=== PATIENT | female | born 1965 | race Caucasian/White ===

== ENCOUNTER 2018-11-02 21:22 | Emergency (ER) | payer MEDICAID ==
[~2018-11-02] VITALS: Ht 165.1 cm; Wt 63.3 kg
[2018-11-03 01:29] VITALS: BP 146/79
[2018-11-03] MEDS ORDERED: DexAMETHasone SOD PHOS 10MG/1ML VIAL INJ IM ONE (01:30)
== END 2018-11-03 01:56 | disposition home or self-care (01) ==
LOC: ER 21:25
DX: S86.912A Strain of unspecified muscle(s) and tendon(s) at lower leg level, left leg, initial encounter (principal); X50.1XXA Overexertion from prolonged static or awkward postures, initial encounter; Y93.89 Activity, other specified; Y92.89 Other specified places as the place of occurrence of the external cause; Y99.8 Other external cause status
CPT/HCPCS: 29505; 73562; 96372; 99283; J1100

== ENCOUNTER 2020-02-11 17:20 | Inpatient (IN) | payer MEDICAID, OTHER ==
[~2020-02-11] VITALS: Ht 165.1 cm; Wt 64.7 kg
[2020-02-11 20:37] LABS: Albumin 3.4 g/dL (3.4-5.0); Calcium 8.8 mg/dL (8.5-10.1); Potassium 3.8 mmol/L (3.5-5.1)
[2020-02-11 20:38] LABS: Basophils # (auto) 0 10 ^3/uL (0-0.2); Basophils % (auto) 0.4 % (0.0-2.0); Eosinophils # (auto) 0.2 10 ^3/uL (0-0.8); Eosinophils % (auto) 2.3 % (0.0-7.0); Hematocrit 43.2 % (36.0-46.0); Hemoglobin 14.4 g/dL (12.2-16.2); Lymphocytes # (auto) 1.8 10 ^3/uL (0.4-5.4); Lymphocytes % (auto) 18.6 % (10.0-50.0); Mean Corpuscular Hemoglobin 30.3 pg (28.0-32.0); Mean Corpuscular Hgb Conc. 33.4 g/dL (32.0-36.0); Mean Corpuscular Volume 90.7 fL (80.0-100.0); Monocytes # (auto) 0.5 10 ^3/uL (0-1.3); Monocytes % (auto) 5.1 % (0.0-12.0); Neutrophils # (auto) 7.2 10 ^3/uL (1.6-8.6); Neutrophils % (auto) 73.6 % (37.0-80.0); Platelet Count (auto) 262 10^3/uL (140-450); Red Blood Cells 4.76 10^6/uL (4.0-5.20); White Blood Cell 9.8 10^3/uL (4.4-10.8)
[2020-02-11 20:40] LABS: Bilirubin, Total 0.3 mg/dL (0.2-1.0); Total Protein 7.1 g/dL (6.4-8.2)
[2020-02-11 21:15] LABS: INR 1.1 (0.9-1.15); Partial Thromboplastin Time 25.8 sec (23.0-31.2)
[2020-02-11] MEDS ORDERED: IOHEXOL 350 MG/ML 100ML IJ ONE (21:56)
[2020-02-12] MEDS ORDERED: ONDANSETRON HCL 4 MG/2 ML VIAL IV PRN (00:30)
[2020-02-12] MEDS ORDERED: ACETAMINOPHEN 325 MG TAB PO PRN (00:30)
[2020-02-12] MEDS ORDERED: TEMAZEPAM 15 MG CAP PO PRN (00:30)
[2020-02-12 05:28] LABS: Urine Bacteria FEW /hpf (None Seen); Urine Blood Negative /uL (Negative); Urine Mucus FEW (None Seen); Urine Specific Gravity > 1.050 (1.001-1.035); Urine WBC 5 /hpf (0 - 5)
[2020-02-12 05:34] LABS: Alcohol, Urine < 3.0 mg/dL (0-10); Amphetamine Screen, Urine POSITIVE (NEGATIVE); Barbiturate Scree,Urine NEGATIVE (NEGATIVE); Benzodiazephine Screen, Urine NEGATIVE (NEGATIVE); Cannabinoid Screen, Urine NEGATIVE (NEGATIVE); Cocaine Screen, Urine NEGATIVE (NEGATIVE); Opiate Scree,Urine NEGATIVE (NEGATIVE); Phencyclidine Screen, Urine NEGATIVE (NEGATIVE)
[2020-02-12] MEDS ORDERED: ENOXAPARIN SOD 40 MG/0.4 ML SYRINGE SC SCH (10:00)
[2020-02-12] MEDS ORDERED: ASPirin 81 mg TAB PO SCH (10:00)
[2020-02-12] MEDS: FAMOTIDINE 20 MG TAB PO SCH ×2 (10:16→21:06)
[2020-02-12] MEDS ORDERED: ENOXAPARIN SOD 40 MG/0.4 ML SYRINGE SC ONE (12:30)
[2020-02-12 16:30] VITALS: BP 149/87
--- NOTE | 2020-02-12 16:30 | NUR ---
MS admit from ER BIBIANA CHENG admitted to tele/MS after SBAR received. Patient oriented to RAJANI TUCKER, RN primary RN, unit, room, bed, and unit policies regarding patient care and visiting hours. Patient weighed by bed scale and encouraged to call if they need something. All questions and concerns addressed, patient verbalized understanding. Note: VS: 97.8, 91, 17, 96%, 149/87. No complaints of pain or discomfort, will continue to monitor.
[2020-02-12 17:00] VITALS: BP 149/87
--- NOTE | 2020-02-12 18:23 | NUR ---
MED REC Patient does not take any medications at home
[2020-02-12] MEDS: ATORVASTATIN 20 MG TAB PO SCH (21:06)
--- NOTE | 2020-02-12 21:45 | NUR ---
DR ARAGON IN TO SEE PATIENT. ORDERS MADE AND NOTED.
[2020-02-12 22:00] VITALS: BP 89/62
[2020-02-13 05:00] VITALS: BP 102/63
[2020-02-13 06:16] LABS: Basophils # (auto) 0 10 ^3/uL (0-0.2); Basophils % (auto) 0.5 % (0.0-2.0); Eosinophils # (auto) 0.3 10 ^3/uL (0-0.8); Eosinophils % (auto) 4.9 % (0.0-7.0); Hematocrit 43.2 % (36.0-46.0); Hemoglobin 14.6 g/dL (12.2-16.2); Lymphocytes # (auto) 2.5 10 ^3/uL (0.4-5.4); Lymphocytes % (auto) 34.7 % (10.0-50.0); Mean Corpuscular Hemoglobin 30.4 pg (28.0-32.0); Mean Corpuscular Hgb Conc. 33.7 g/dL (32.0-36.0); Mean Corpuscular Volume 90.2 fL (80.0-100.0); Monocytes # (auto) 0.6 10 ^3/uL (0-1.3); Monocytes % (auto) 8.6 % (0.0-12.0); Neutrophils # (auto) 3.7 10 ^3/uL (1.6-8.6); Neutrophils % (auto) 51.3 % (37.0-80.0); Nucleated Red Blood Cells % 0.2 %; Platelet Count (auto) 224 10^3/uL (140-450); Red Blood Cells 4.79 10^6/uL (4.0-5.20); Red Cell Distribution Width 12.1 % (11.8-14.3); White Blood Cell 7.2 10^3/uL (4.4-10.8)
[2020-02-13 06:39] LABS: Potassium 3.6 mmol/L (3.5-5.1)
[2020-02-13 06:47] LABS: BUN/Creatinine Ratio 25.6; Calcium 8.8 mg/dL (8.5-10.1)
[2020-02-13 06:57] LABS: Cholesterol 169 mg/dL (< 200); HDL Cholesterol 47 mg/dL (40-59); LDL Cholesterol 119 mg/dL (< 100); Triglycerides 82 mg/dL (< 150)
--- NOTE | 2020-02-13 08:20 | NUR ---
Opening note Assumed care of patient from NOC RN. Patient is Aox4 on room air no s/s of distress noted. Bed is in lowest locked position, call light within reach and side rails up x2. Updated patient on plan of care and patient verbalized understanding. Will continue to monitor.
[2020-02-13 09:00] VITALS: BP 105/66
[2020-02-13] MEDS: ASPirin 81 mg TAB PO SCH (10:47)
[2020-02-13] MEDS: FAMOTIDINE 20 MG TAB PO SCH ×2 (10:47→22:20)
[2020-02-13] MEDS: ENOXAPARIN SOD 40 MG/0.4 ML SYRINGE SC SCH (10:47)
--- NOTE | 2020-02-13 12:10 | NUR ---
physician rounding Dr. Juan at nurses station, per MD patient is to have a NIEVES. Per MD cardio will see her to schedule. Per MD she will update patient. No new orders received.
[2020-02-13 13:00] VITALS: BP 93/60
[2020-02-13 17:00] VITALS: BP 97/54
--- NOTE | 2020-02-13 19:10 | NUR ---
END OF SHIFT NOTE CARE ENDORSED TO NOC RN. NO S/S OF DISTRESS NOTED.
[2020-02-13 22:15] VITALS: BP 95/61
[2020-02-13] MEDS: ATORVASTATIN 20 MG TAB PO SCH (22:20)
[2020-02-14 05:13] VITALS: BP 92/55
--- NOTE | 2020-02-14 07:08 | NUR ---
END OF SHIFT NOTES WILL ENDORSE CARE TO DAY SHIFT RN. PT [id number], NO S/S OF DISTRESS OR SOB
[2020-02-14 09:00] VITALS: BP 97/50
[2020-02-14] MEDS ORDERED: ATO40T PO (10:40)
[2020-02-14] MEDS ORDERED: ASPI81CH43 PO (10:40)
--- NOTE | 2020-02-14 10:45 | NUR ---
PATIENT REPORTS THAT SHE WALKS FINE WITHOUT SYMPTOMS AND DOES NOT NEED P.T. INTERVENTION.
[2020-02-14] MEDS: ENOXAPARIN SOD 40 MG/0.4 ML SYRINGE SC SCH (11:37)
[2020-02-14] MEDS: ASPirin 81 mg TAB PO SCH (11:37)
[2020-02-14] MEDS: FAMOTIDINE 20 MG TAB PO SCH (11:37)
[2020-02-14 13:00] VITALS: BP 98/69
--- NOTE | 2020-02-14 13:18 | NUR ---
PATIENT TAKEN DOWN TO PLATE STACKER HAND.
[2020-02-14] MEDS ORDERED: ONDANSETRON HCL 4 MG/2 ML VIAL IV ONE (13:30)
[2020-02-14] MEDS ORDERED: LIDOCAINE VISCOUS 2% 15ML UD PO ONE (13:30)
[2020-02-14] MEDS ORDERED: fentaNYL CITRATE 100 MCG/2 ML VL IV ONE (13:30)
[2020-02-14] MEDS ORDERED: MIDAZOLAM HCL 5 MG/ML-1ML VIAL IV ONE (13:30)
[2020-02-14] MEDS ORDERED: MIDAZOLAM HCL 1MG/1ML-2 ML VIAL ONE (14:08)
--- NOTE | 2020-02-14 14:44 | NUR ---
PATIENT BACK IN ROOM FROM PROCEDURE. VS STABLE, PATIENT SLEEPY BUT ABLE TO COMMUNICATE AND VERBALIZE UNDERSTANDING.
--- NOTE | 2020-02-14 18:19 | NUR ---
DISCHARGE: PATIENT GIVEN ALL EDUCATION MATERIALS, PATIENT VERBALIZED UNDERSTANDING. MEDICATIONS DELIVERED TO BEDSIDE AND REVIEWED WITH THE PATIENT. IV REMOVED, MANUAL PRESSURE APPLIED. PATIENT LEFT VIA WHEELCHAIR WITH ALL BELONGINGS.
== END 2020-02-14 18:18 | disposition home or self-care (01) | DRG 45 ==
LOC: EDBD 17:20 → ER 17:27 → OVERFLOW 17:28 → WEST WING 02-12 16:00
PROVIDERS: ADMIT Nurse Practitioner; ATTEND Internal Medicine
PROC: B24BZZ4 Ultrasonography of Heart with Aorta, Transesophageal (ICD-10-PCS; principal; 2020-02-14)
DX: I63.9 Cerebral infarction, unspecified (principal); G35 Multiple sclerosis; F41.9 Anxiety disorder, unspecified; F15.10 Other stimulant abuse, uncomplicated; E78.5 Hyperlipidemia, unspecified; R20.0 Anesthesia of skin; R47.81 Slurred speech; Z83.3 Family history of diabetes mellitus; Z79.899 Other long term (current) drug therapy; Z86.73 Personal history of transient ischemic attack (TIA), and cerebral infarction without residual deficits
CPT/HCPCS: 36415; 70450; 70551; 71045; 71275; 80048; 80053; 80061; 80307; 80320; 81001; 81241; 83880; 84484; 84702; 85025; 85301; 85302; 85303; 85305; 85306; 85379; 85610; 85613; 85670; 85705; 85730; 85732; 86147; 86850; 86900; 86901; 93005; 93306; 93312; 93886; 96372; 99152; 99291; G0378; J2250; J2405